=== PATIENT | female | born 1955 | race Caucasian/White ===

== ENCOUNTER 2017-04-21 15:18 | Emergency (ER) | payer OTHER, MEDICARE ==
[~2017-04-21] VITALS: Ht 165.1 cm; Wt 59.4 kg
[~2017-04-21 15:18] MED LIST: KEPPRA XR PO; LEVE500 PO; OXCA300 PO; PRIM250 PO; ZONI100 PO
[2017-04-21] MEDS ORDERED: CLON.5 PO (16:08)
[2017-04-21] MEDS ORDERED: Bactrim Ds Tab1 EACH PO (17:19)
== END 2017-04-21 17:25 | disposition home or self-care (01) ==
LOC: ER 15:18
DX: L03.011 Cellulitis of right finger (principal); G40.909 Epilepsy, unspecified, not intractable, without status epilepticus; Z79.899 Other long term (current) drug therapy; Z87.891 Personal history of nicotine dependence
CPT/HCPCS: 73140; 99283

== ENCOUNTER → 2018-11-07 | Outpatient (CLI) | payer MEDICARE, BC ==
[~2018-11-07] MED LIST changes: +Bactrim Ds Tab1 EACH PO; +CLON.5 PO
== END | disposition home or self-care (01) ==
LOC: LAB SHORT 15:17 → LAB 15:17
DX: L08.0 Pyoderma (principal)
CPT/HCPCS: 87070; 87075; 87205

== ENCOUNTER 2020-06-22 17:04 | Emergency (ER) | payer MEDICARE, BC ==
[~2020-06-22] VITALS: Ht 165.1 cm; Wt 64.9 kg
[~2020-06-22 17:04] MED LIST changes: +OXCA150 PO; -OXCA300 PO
[2020-06-22] MEDS ORDERED: ROSU10TA PO (18:02)
[2020-06-22] MEDS ORDERED: ASPI81CH PO (18:02)
== END 2020-06-22 19:31 | disposition home or self-care (01) ==
LOC: ER 17:04
DX: S82.852A Displaced trimalleolar fracture of left lower leg, initial encounter for closed fracture (principal); G40.909 Epilepsy, unspecified, not intractable, without status epilepticus; Z79.899 Other long term (current) drug therapy; Z87.891 Personal history of nicotine dependence; W10.1XXA Fall (on)(from) sidewalk curb, initial encounter
CPT/HCPCS: 27818; 73610; 99283-25; A9270

== ENCOUNTER 2020-06-26 12:48 | Day surgery (SDC) | payer MEDICARE, BC ==
[~2020-06-26] VITALS: Ht 165.1 cm; Wt 66.5 kg
[~2020-06-26 12:48] MED LIST changes: +ASPI81CH PO; +ROSU10TA PO
--- NOTE | 2020-06-26 14:19 | NUR ---
06/26/20 1419 LEE GR T/O PERFORMED. L POPLITEAL BLOCK PROCEDURE STARTED AT 1350. PROCEDURE ENDED AT 1415/ NO ADVERSE EVENTS, PT TOLERATED PROCEDURE WELL.
--- NOTE | 2020-06-26 17:21 | NUR ---
06/26/20 1721 Theresa Frazier PT SLEEPY IN SDU, PT MEDICATED FOR NAUSEA AFTER TRANSFER INTO RECLINER. PT STATES NAUSEA HAS RESOLVED, JUST FEELS DIZZY FROM ANESTHESIA. VSS. TOLERATING PO INTAKE WELL. BROUGHT TO CHAIRSIDE TO GO OVER DC INSTRUCTIONS SINCE PT WAS SLEEPY.
== END 2020-06-26 17:23 | disposition home or self-care (01) ==
LOC: ORSCSDS 12:48
PROVIDERS: Orthopaedic Surgery
PROC: 0QSH04Z Reposition Left Tibia with Internal Fixation Device, Open Approach (ICD-10-PCS; principal; 2020-06-26 14:15)
PROC: 0QSK04Z Reposition Left Fibula with Internal Fixation Device, Open Approach (ICD-10-PCS; principal; 2020-06-26 14:15)
DX: S82.852A Displaced trimalleolar fracture of left lower leg, initial encounter for closed fracture (principal)
CPT/HCPCS: 93005; 93010; A9270; C1713; J0330; J0690; J2250; J2405; J2704; J2795; J3010; J7120

== ENCOUNTER → 2020-08-22 | Outpatient (CLI) | payer MEDICARE, BC | LOC: LAB 10:14 → LAB SHORT 10:14 | DX: J02.9 Acute pharyngitis, unspecified (principal) | CPT/HCPCS: 87081 ==

== ENCOUNTER → 2021-02-18 | Outpatient (CLI) | payer MEDICARE, BC | END | disposition home or self-care (01) | LOC: LAB 08:42 → LAB SHORT 08:42 | DX: L08.0 Pyoderma (principal) | CPT/HCPCS: 87070; 87205 ==

== ENCOUNTER 2021-09-08 19:19 | Emergency (ER) | payer MEDICARE, BC ==
[~2021-09-08] VITALS: Ht 165.1 cm; Wt 64.9 kg
[2021-09-08 21:03] LABS: BASOPHILS ABSOLUTE AUTO 0.05 K/mm3 (0.00-0.23); BASOPHILS PERCENT AUTO 1 % (0-2); EOSINOPHILS ABSOLUTE AUTO 0.12 K/mm3 (0.00-0.68); EOSINOPHILS PERCENT AUTO 3 % (0-6); Hematocrit 33.6 % (33.0-51.0); Hemoglobin 11.6 g/dL (11.5-16.0); IMMATURE GRAN ABSOLUTE AUTO 0.01 K/mm3 (0.00-0.10); IMMATURE GRAN PERCENT AUTO 0 % (0-1); LYMPHOCYTES ABSOLUTE AUTO 1.49 K/mm3 (0.84-5.20); LYMPHOCYTES PERCENT AUTO 32 % (21-46); MONOCYTES ABSOLUTE AUTO 0.53 K/mm3 (0.16-1.47); MONOCYTES PERCENT AUTO 11 % (4-13); Mean Corpuscular HGB 33.6 pg (26.0-34.0); Mean Corpuscular HGB Conc 34.5 g/dL (31.5-36.5); Mean Corpuscular Volume 97 fL (80-100); Mean Platelet Volume 10.6 fL (9.1-12.4); NEUTROPHILS PERCENT AUTO 53 % (41-73); Platelet Count 236 K/mm3 (150-400); RDW Coefficient Variation 12.7 % (11.7-14.2); RDW Standard Deviation 45.1 fL (35.1-46.3); Red Blood Cell Count 3.45 M/mm3 (3.80-5.20)
[2021-09-08 21:16] LABS: Albumin, Blood 4.1 g/dL (3.4-5.0); Albumin/Globulin Ratio 1.1 (0.8-1.8); Bilirubin, Total 0.4 mg/dL (0.1-1.0); Bun/Creatinine Ratio 20.8 (12.0-20.0); Creatinine, Blood 0.53 mg/dL (0.40-1.00); Globulin, Blood 3.7 g/dL (2.2-4.0); Magnesium, Blood 2.4 mg/dL (1.6-2.4); Potassium, Blood 4.1 mmol/L (3.5-5.5); Total Protein, Blood 7.8 g/dL (6.4-8.2)
[2021-09-08] MEDS ORDERED: METO25ER PO (22:40)
== END 2021-09-08 23:25 | disposition home or self-care (01) ==
LOC: ER 19:19
PROVIDERS: Emergency Medicine
DX: R07.9 Chest pain, unspecified (principal); I48.91 Unspecified atrial fibrillation; I48.92 Unspecified atrial flutter; Z79.82 Long term (current) use of aspirin; Z79.899 Other long term (current) drug therapy; Z87.891 Personal history of nicotine dependence
CPT/HCPCS: 71046; 80053; 83735; 84484; 85025; 93005; 93010; A9270; J7030

== ENCOUNTER 2022-09-06 07:42 | Emergency (ER) | payer MEDICARE, BC ==
[~2022-09-06] VITALS: Ht 165.1 cm; Wt 59.0 kg
[~2022-09-06 07:42] MED LIST changes: +METO25ER PO
[2022-09-06 08:54] LABS: BASOPHILS ABSOLUTE AUTO 0.06 K/mm3 (0.00-0.23); BASOPHILS PERCENT AUTO 1 % (0-2); EOSINOPHILS ABSOLUTE AUTO 0.15 K/mm3 (0.00-0.68); EOSINOPHILS PERCENT AUTO 3 % (0-6); Hemoglobin 11.4 g/dL (11.5-16.0); IMMATURE GRAN ABSOLUTE AUTO 0.01 K/mm3 (0.00-0.10); IMMATURE GRAN PERCENT AUTO 0 % (0-1); LYMPHOCYTES ABSOLUTE AUTO 1.37 K/mm3 (0.84-5.20); LYMPHOCYTES PERCENT AUTO 26 % (21-46); MONOCYTES ABSOLUTE AUTO 0.35 K/mm3 (0.16-1.47); MONOCYTES PERCENT AUTO 7 % (4-13); Mean Corpuscular HGB 33.5 pg (26.0-34.0); Mean Corpuscular HGB Conc 34.5 g/dL (31.5-36.5); Mean Corpuscular Volume 97 fL (80-100); NEUTROPHILS ABSOLUTE AUTO 3.33 K/mm3 (1.96-9.15); NEUTROPHILS PERCENT AUTO 63 % (41-73); Platelet Count 264 K/mm3 (150-400); RDW Coefficient Variation 12.5 % (11.7-14.2); RDW Standard Deviation 44.6 fL (35.1-46.3); White Blood Cell Count 5.27 K/mm3 (4.00-11.30)
[2022-09-06 09:13] LABS: Albumin, Blood 3.7 g/dL (3.4-5.0); Bilirubin, Total 0.2 mg/dL (0.1-1.0); Creatinine, Blood 0.56 mg/dL (0.40-1.00); Globulin, Blood 3.6 g/dL (2.2-4.0); Potassium, Blood 3.5 mmol/L (3.5-5.5); Total Protein, Blood 7.3 g/dL (6.4-8.2)
[2022-09-06 10:15] VITALS: BP 146/76
== END 2022-09-06 12:07 | disposition home or self-care (01) ==
LOC: ER 07:42
PROVIDERS: Student in an Organized Health Care Education/Training Program
DX: I44.0 Atrioventricular block, first degree (principal); Z79.899 Other long term (current) drug therapy; Z79.82 Long term (current) use of aspirin; Z85.3 Personal history of malignant neoplasm of breast
CPT/HCPCS: 71046; 80053; 83880; 84484; 85025; 93005; 93010; 99285-25; J7030

== ENCOUNTER 2022-10-18 19:09 | Emergency (ER) | payer MEDICARE, BC ==
[~2022-10-18] VITALS: Ht 165.1 cm; Wt 57.6 kg
[2022-10-18 19:13] VITALS: BP 136/64
[2022-10-18 20:03] LABS: BASOPHILS ABSOLUTE AUTO 0.07 K/mm3 (0.00-0.23); BASOPHILS PERCENT AUTO 1 % (0-2); EOSINOPHILS ABSOLUTE AUTO 0.12 K/mm3 (0.00-0.68); EOSINOPHILS PERCENT AUTO 2 % (0-6); Hematocrit 32.2 % (33.0-51.0); Hemoglobin 11.3 g/dL (11.5-16.0); IMMATURE GRAN PERCENT AUTO 0 % (0-1); LYMPHOCYTES ABSOLUTE AUTO 1.14 K/mm3 (0.84-5.20); LYMPHOCYTES PERCENT AUTO 20 % (21-46); MONOCYTES ABSOLUTE AUTO 0.54 K/mm3 (0.16-1.47); MONOCYTES PERCENT AUTO 9 % (4-13); Mean Corpuscular HGB 33.8 pg (26.0-34.0); Mean Corpuscular HGB Conc 35.1 g/dL (31.5-36.5); Mean Corpuscular Volume 96 fL (80-100); Mean Platelet Volume 10.2 fL (9.1-12.4); NEUTROPHILS ABSOLUTE AUTO 3.92 K/mm3 (1.96-9.15); NEUTROPHILS PERCENT AUTO 68 % (41-73); Platelet Count 238 K/mm3 (150-400); RDW Coefficient Variation 12.5 % (11.7-14.2); RDW Standard Deviation 43.8 fL (35.1-46.3); Red Blood Cell Count 3.34 M/mm3 (3.80-5.20); White Blood Cell Count 5.79 K/mm3 (4.00-11.30)
[2022-10-18 20:23] LABS: Albumin, Blood 3.6 g/dL (3.4-5.0); Bilirubin, Total 0.2 mg/dL (0.1-1.0); Bun/Creatinine Ratio 18.7 (12.0-20.0); Calcium, Blood 8.7 mg/dL (8.5-10.1); Creatinine, Blood 0.59 mg/dL (0.40-1.00); Globulin, Blood 3.7 g/dL (2.2-4.0); Potassium, Blood 3.9 mmol/L (3.5-5.5); Total Protein, Blood 7.3 g/dL (6.4-8.2)
== END 2022-10-18 22:45 | disposition home or self-care (01) ==
LOC: ER 19:09
PROVIDERS: Emergency Medicine
DX: R10.31 Right lower quadrant pain (principal); Z79.899 Other long term (current) drug therapy; Z79.82 Long term (current) use of aspirin; M79.606 Pain in leg, unspecified; E87.1 Hypo-osmolality and hyponatremia
CPT/HCPCS: 80053; 85025; 93971; 99283-25

== ENCOUNTER 2024-09-22 13:05 | Inpatient (IN) | payer MEDICARE, OTHER ==
[~2024-09-22] VITALS: Ht 165.1 cm; Wt 58.5 kg
[2024-09-22] MEDS ORDERED: CLOPIDOGREL300 M1 (13:23)
[2024-09-22 13:37] LABS: BASOPHILS ABSOLUTE AUTO 0.02 K/mm3 (0.00-0.23); BASOPHILS PERCENT AUTO 0 % (0-2); EOSINOPHILS PERCENT AUTO 0 % (0-6); Hematocrit 19.1 % (33.0-51.0); Hemoglobin 6.6 g/dL (11.5-16.0); IMMATURE GRAN ABSOLUTE AUTO 0.02 K/mm3 (0.00-0.10); IMMATURE GRAN PERCENT AUTO 0 % (0-1); LYMPHOCYTES ABSOLUTE AUTO 0.63 K/mm3 (0.84-5.20); LYMPHOCYTES PERCENT AUTO 7 % (21-46); MONOCYTES ABSOLUTE AUTO 0.44 K/mm3 (0.16-1.47); MONOCYTES PERCENT AUTO 5 % (4-13); Mean Corpuscular HGB 33.8 pg (26.0-34.0); Mean Corpuscular HGB Conc 34.6 g/dL (31.5-36.5); Mean Corpuscular Volume 98 fL (80-100); Mean Platelet Volume 10.1 fL (9.1-12.4); NEUTROPHILS PERCENT AUTO 87 % (41-73); Platelet Count 194 K/mm3 (150-400); RDW Coefficient Variation 14.5 % (11.7-14.2); RDW Standard Deviation 51.8 fL (35.1-46.3); Red Blood Cell Count 1.95 M/mm3 (3.80-5.20); White Blood Cell Count 8.61 K/mm3 (4.00-11.30)
[2024-09-22 14:03] LABS: Albumin, Blood 3.1 g/dL (3.4-5.0); Albumin/Globulin Ratio 1.2 (0.8-1.8); Bilirubin, Total 0.1 mg/dL (0.1-1.0); Bun/Creatinine Ratio 98.7 (12.0-20.0); Calcium, Blood 7.5 mg/dL (8.5-10.1); Creatinine, Blood 0.48 mg/dL (0.40-1.00); Globulin, Blood 2.6 g/dL (2.2-4.0); Potassium, Blood 3.5 mmol/L (3.5-5.5); Total Protein, Blood 5.7 g/dL (6.4-8.2)
[2024-09-22] MEDS ORDERED: Pantoprazole Sodium 40 MG in NS 50 ML IV SCH (15:10)
[2024-09-22] MEDS ORDERED: Pantoprazole Sodium 40 MG Injection IV ONE (15:10)
[2024-09-22] MEDS ORDERED: NS 1,000 ML IV SCH (17:05)
[2024-09-22] MEDS ORDERED: Acetaminophen 325 MG TABLET PO PRN (18:00)
[2024-09-22] MEDS ORDERED: Ondansetron HCl 2 MG / ML 2ML Vial IV PRN (18:00)
[2024-09-22] MEDS ORDERED: Lactated Ringer's 1,000 ML IV ONE (18:57)
[2024-09-22] MEDS ORDERED: Lactated Ringer's 1,000 ML IV SCH (19:00)
[2024-09-22 19:35] LABS: International Normalized Ratio 1.2
[2024-09-22 19:41] LABS: Percent Saturation 96.5 % (15.0-50.0)
[2024-09-22] MEDS ORDERED: OXcarbazepine 300 MG Tab PO SCH (20:00)
[2024-09-22 20:45] VITALS: BP 114/62
[2024-09-22] MEDS ORDERED: ClonazePAM 0.5 MG Tab PO SCH (21:00)
[2024-09-22] MEDS ORDERED: Primidone 250 MG Tab PO SCH (21:00)
[2024-09-22] MEDS ORDERED: Rosuvastatin Calcium 10 MG Tab PO SCH (21:00)
[2024-09-22 23:38] LABS: Hematocrit 25.7 % (33.0-51.0); Hemoglobin 8.4 g/dL (11.5-16.0)
[2024-09-23] VITALS (9 sets, daily range): BP systolic 100–144; BP diastolic 52–71
[2024-09-23 03:40] LABS: BASOPHILS ABSOLUTE AUTO 0.02 K/mm3 (0.00-0.23); BASOPHILS PERCENT AUTO 0 % (0-2); EOSINOPHILS ABSOLUTE AUTO 0.02 K/mm3 (0.00-0.68); EOSINOPHILS PERCENT AUTO 0 % (0-6); Hematocrit 21.3 % (33.0-51.0); Hemoglobin 7.2 g/dL (11.5-16.0); IMMATURE GRAN ABSOLUTE AUTO 0.01 K/mm3 (0.00-0.10); IMMATURE GRAN PERCENT AUTO 0 % (0-1); LYMPHOCYTES ABSOLUTE AUTO 1.77 K/mm3 (0.84-5.20); LYMPHOCYTES PERCENT AUTO 39 % (21-46); MONOCYTES PERCENT AUTO 11 % (4-13); Mean Corpuscular HGB 30.5 pg (26.0-34.0); Mean Corpuscular HGB Conc 33.8 g/dL (31.5-36.5); Mean Platelet Volume 10.2 fL (9.1-12.4); NEUTROPHILS PERCENT AUTO 49 % (41-73); Platelet Count 137 K/mm3 (150-400); RDW Coefficient Variation 17.2 % (11.7-14.2); RDW Standard Deviation 56.8 fL (35.1-46.3); Red Blood Cell Count 2.36 M/mm3 (3.80-5.20); White Blood Cell Count 4.52 K/mm3 (4.00-11.30)
[2024-09-23 03:41] LABS: Mean Corpuscular Volume 90 fL (80-100)
[2024-09-23 04:03] LABS: Magnesium, Blood 1.7 mg/dL (1.6-2.4)
[2024-09-23 04:04] LABS: Albumin, Blood 2.8 g/dL (3.4-5.0); Albumin/Globulin Ratio 1.4 (0.8-1.8); Bilirubin, Total 0.3 mg/dL (0.1-1.0); Bun/Creatinine Ratio 61.1 (12.0-20.0); Calcium, Blood 8.1 mg/dL (8.5-10.1); Creatinine, Blood 0.49 mg/dL (0.40-1.00); Potassium, Blood 3.6 mmol/L (3.5-5.5); Total Protein, Blood 4.8 g/dL (6.4-8.2)
[2024-09-23] MEDS ORDERED: Pantoprazole Sodium 40 MG Injection IV SCH (06:00)
[2024-09-23] MEDS ORDERED: OXcarbazepine 300 MG Tab PO SCH (09:00)
[2024-09-23] MEDS ORDERED: Lactated Ringer's 1,000 ML IV SCH (09:20)
--- NOTE | 2024-09-23 09:42 | NUR ---
UPDATE: PT TO DAY SURG @09. VSS. WILL AWAIT RETURN.
--- NOTE | 2024-09-23 09:47 | NUR ---
#20 PIV TO BILATERAL AC C/D/I-FLUSHES WELL.
--- NOTE | 2024-09-23 09:49 | NUR ---
INTO SDS VIA WHEELCHAIR. PT DENIES PAIN OR SOB. PT SKIN APPEARS PALE. HISTORY AND ALLERGIES REVIEWED. LUNGS CLEAR. PT DENIES CP. VS WDL. NPO STATUS CONFIRMED.
[2024-09-23] MEDS ORDERED: Lidocaine HCl 4% 5 ML SDA ONE (09:57)
[2024-09-23] MEDS ORDERED: propofoL 40 ML IV ONE (09:59)
[2024-09-23] MEDS ORDERED: Lidocaine HCl 1% 5 ML SYR INJ ONE (10:00)
[2024-09-23] MEDS ORDERED: Lidocaine HCl 4% 5 ML SDA INH SCH (10:00)
--- NOTE | 2024-09-23 10:12 | NUR ---
09/23/24 1012 Jose D Foss MONITOR INTACT WITH CONTINUOUS PULSE OXIMETRY, CONTINUOUS END TITAL CO2, 3-LEAD EKG AND INTERMITTENT BLOOD PRESSURE. History, Chart, Medications and Allergies reviewed before start of procedure. 3-LEAD EKG REVIEWED WITH PHYSICIAN PRIOR TO START OF PROCEDURE. O2 VIA POM INTACT THROUGHOUT SEDATION/PROCEDURE. Bite Block Placed. LIDO PLACED TO BACK OF THROAT PRIOR TO PROCEDURE PER DR MCKAY'S ORDERS. GLASSES REMOVED IN ENDO ROOM WELL AND TELE BOX. [employer] TECHNICIAN NOTIIFED OF REMOVING BOX FOR PROCEDURE.
--- NOTE | 2024-09-23 10:30 | NUR ---
UPDATE PT RETURNED FROM EGD PROCEDURE. PT AWAKE AND ALERT. PT ABLE TO STAND AND TRANSFER FROM GURNEY TO BED, STEADY ON FEET. PT DENIES ANY PAIN. VS STABLE.
[2024-09-23 10:58] LABS: Hematocrit 21.9 % (33.0-51.0); Hemoglobin 7.5 g/dL (11.5-16.0)
[2024-09-23] MEDS ORDERED: CLOP75 PO (11:22)
[2024-09-23 16:29] LABS: Hematocrit 21.3 % (33.0-51.0); Hemoglobin 7.2 g/dL (11.5-16.0)
[2024-09-23] MEDS ORDERED: PANT20 PO (17:17)
--- NOTE | 2024-09-23 18:01 | NUR ---
UPDATE DISCHARGE INSTRUCTIONS PROVIDED TO PT. PT EDUCATED ON NEW MEDICATIONS. ALL QUESTIONS ANSWERED. PT AWAITING RIDE AND WILL BE TAKEN OUT VIA
[2024-09-23] MEDS ORDERED: ClonazePAM 0.5 MG Tab PO SCH (21:00)
[2024-09-23] MEDS ORDERED: PRIMIDONE 250 MG TAB PO SCH (21:00)
[2024-09-24] MEDS ORDERED: ZONISAMIDE 100 MG CAP PO SCH (09:00)
== END 2024-09-23 19:05 | disposition home or self-care (01) | DRG 379 ==
LOC: ER 13:05 → PCU 13:06
PROVIDERS: Emergency Medicine; Internal Medicine; Student in an Organized Health Care Education/Training Program; Surgery; ADMIT Student in an Organized Health Care Education/Training Program
PROC: 30233N1 Transfusion of Nonautologous Red Blood Cells into Peripheral Vein, Percutaneous Approach (ICD-10-PCS; 2024-09-22)
PROC: 0DB78ZX Excision of Stomach, Pylorus, Via Natural or Artificial Opening Endoscopic, Diagnostic (ICD-10-PCS; principal; 2024-09-23 10:30)
DX: K25.4 Chronic or unspecified gastric ulcer with hemorrhage (principal); G40.909 Epilepsy, unspecified, not intractable, without status epilepticus; D64.9 Anemia, unspecified; I48.0 Paroxysmal atrial fibrillation; I25.10 Atherosclerotic heart disease of native coronary artery without angina pectoris; I95.9 Hypotension, unspecified; Z98.51 Tubal ligation status; Z98.890 Other specified postprocedural states; Z90.12 Acquired absence of left breast and nipple; Z95.5 Presence of coronary angioplasty implant and graft; Z79.02 Long term (current) use of antithrombotics/antiplatelets; Z79.899 Other long term (current) drug therapy; Z85.3 Personal history of malignant neoplasm of breast; Z87.81 Personal history of (healed) traumatic fracture; Z79.82 Long term (current) use of aspirin
CPT/HCPCS: 36415; 36430; 71045; 74174; 80053; 82272; 82728; 83540; 83550; 83735; 84484; 85014; 85018; 85025; 85610; 85730; 86850; 86900; 86901; 86923; 88305; 88342; 93005; 93010; 94762; 96365-59; 96366; 96374; 96376; 99285-25; A6590; A9270; G0378; J2003; J2470; J2704; J7030; J7120; P9016; Q9967

== ENCOUNTER 2024-11-20 07:14 | Day surgery (SDC) | payer MEDICARE, OTHER ==
[~2024-11-20] VITALS: Ht 165.1 cm; Wt 59.1 kg
[~2024-11-20 07:14] MED LIST changes: +CLOP75 PO; +CLOPIDOGREL300 M1; +PANT20 PO
[2024-11-20 09:34] VITALS: BP 136/64
== END 2024-11-20 09:33 | disposition home or self-care (01) ==
LOC: ORSCSDS 07:14
PROVIDERS: Surgery
PROC: 0DB68ZX Excision of Stomach, Via Natural or Artificial Opening Endoscopic, Diagnostic (ICD-10-PCS; principal; 2024-11-20 08:45)
DX: K25.9 Gastric ulcer, unspecified as acute or chronic, without hemorrhage or perforation (principal); K29.50 Unspecified chronic gastritis without bleeding; Z85.3 Personal history of malignant neoplasm of breast; I25.119 Atherosclerotic heart disease of native coronary artery with unspecified angina pectoris; E78.5 Hyperlipidemia, unspecified; I10 Essential (primary) hypertension; G40.909 Epilepsy, unspecified, not intractable, without status epilepticus; Z79.82 Long term (current) use of aspirin; Z79.899 Other long term (current) drug therapy; Z87.891 Personal history of nicotine dependence
CPT/HCPCS: 88305; 88342; J2704; J7120

== ENCOUNTER 2025-02-09 18:55 | Emergency (ER) | payer MEDICARE, OTHER ==
[~2025-02-09] VITALS: Ht 165.1 cm; Wt 59.0 kg
[2025-02-09 19:54] LABS: BASOPHILS ABSOLUTE AUTO 0.06 K/mm3 (0.00-0.23); BASOPHILS PERCENT AUTO 1 % (0-2); EOSINOPHILS ABSOLUTE AUTO 0.20 K/mm3 (0.00-0.68); EOSINOPHILS PERCENT AUTO 3 % (0-6); Hematocrit 27.0 % (33.0-51.0); Hemoglobin 8.7 g/dL (11.5-16.0); IMMATURE GRAN ABSOLUTE AUTO 0.02 K/mm3 (0.00-0.10); IMMATURE GRAN PERCENT AUTO 0 % (0-1); LYMPHOCYTES ABSOLUTE AUTO 1.30 K/mm3 (0.84-5.20); LYMPHOCYTES PERCENT AUTO 20 % (21-46); MONOCYTES ABSOLUTE AUTO 0.64 K/mm3 (0.16-1.47); MONOCYTES PERCENT AUTO 10 % (4-13); Mean Corpuscular HGB Conc 32.2 g/dL (31.5-36.5); Mean Corpuscular Volume 77 fL (80-100); NEUTROPHILS ABSOLUTE AUTO 4.44 K/mm3 (1.96-9.15); NEUTROPHILS PERCENT AUTO 67 % (41-73); NRBC ABSOLUTE 0.00 K/mm3 (0.00-0.02); NRBC Auto 0.0 /100 WBC (0.0-0.2); Platelet Count 431 K/mm3 (150-400); RDW Coefficient Variation 19.3 % (11.7-14.2); RDW Standard Deviation 54.2 fL (35.1-46.3)
[2025-02-09 20:00] LABS: Alanine Aminotransfer (ALT/SGP 18.0 U/L (12-78); Albumin, Blood 3.4 g/dL (3.4-5.0); Albumin/Globulin Ratio 1.2 (0.8-1.8); Anion Gap 8.0 mmol/L (3-11); Aspartate Aminotrans (AST/SGOT 18.0 U/L (12-37); Bilirubin, Total 0.2 mg/dL (0.1-1.0); Blood Urea Nitrogen 14.0 mg/dL (8-24); CO2, Blood 24.0 mmol/L (21-32); Calcium, Blood 8.4 mg/dL (8.5-10.1); Chloride, Blood 99.0 mmol/L (98-108); Creatinine, Blood 0.48 mg/dL (0.40-1.00); Globulin, Blood 2.9 g/dL (2.2-4.0); Glucose, Blood 102.0 mg/dL (70-99); Potassium, Blood 4.4 mmol/L (3.5-5.5); Sodium, Blood 127.0 mmol/L (136-145); Total Protein, Blood 6.3 g/dL (6.4-8.2)
[2025-02-09 21:42] LABS: Influenza A, PCR NEGATIVE (NEGATIVE); Influenza B, PCR NEGATIVE (NEGATIVE); Resp Syncytial Virus, PCR NEGATIVE (NEGATIVE); SARS-Cov-2 (COVID-19) PCR, MMC NEGATIVE (NEGATIVE)
[2025-02-10 00:15] VITALS: BP 127/70
== END 2025-02-10 00:37 | disposition home or self-care (01) ==
LOC: ER 18:55
PROVIDERS: Student in an Organized Health Care Education/Training Program
DX: R06.02 Shortness of breath (principal); R91.8 Other nonspecific abnormal finding of lung field; D53.9 Nutritional anemia, unspecified; E87.1 Hypo-osmolality and hyponatremia; I48.91 Unspecified atrial fibrillation; I25.10 Atherosclerotic heart disease of native coronary artery without angina pectoris; Z87.891 Personal history of nicotine dependence; Z96.82 Presence of neurostimulator; Z79.82 Long term (current) use of aspirin; Z79.899 Other long term (current) drug therapy
CPT/HCPCS: 71046; 71260; 80053; 83690; 83880; 84484; 85025; 85379; 87637; 93005; 93010; 99285-25; Q9967